=== PATIENT | male | born 1945 | race Caucasian/White ===

== ENCOUNTER → 2017-08-18 | Outpatient (CLI) | payer MEDICARE ==
[~2017-08-18] MED LIST: LISI5TAB7 PO; OMNIPAQUE 350 MG/ML, 100ML BOTTLE ONE; OXYC-302 PO; PSYL1PAC9 PO; SIMV40TA3 PO
== END | disposition home or self-care (01) ==
LOC: CFH 11:28
PROVIDERS: ATTEND Internal Medicine Hematology & Oncology
DX: C18.0 Malignant neoplasm of cecum (principal); E04.1 Nontoxic single thyroid nodule
CPT/HCPCS: 71260; 74177; Q9967

== ENCOUNTER → 2017-11-04 | Outpatient (CLI) | payer MEDICARE ==
[~2017-11-04] MED LIST changes: -OMNIPAQUE 350 MG/ML, 100ML BOTTLE ONE
== END | disposition home or self-care (01) ==
LOC: CFH 09:28
PROVIDERS: ATTEND Family Medicine
DX: R42 Dizziness and giddiness (principal)
CPT/HCPCS: 70551

== ENCOUNTER 2019-08-26 12:44 | Outpatient (CLI) | payer MEDICARE ==
[~2019-08-26 12:44] MED LIST changes: +SIMV40TA20 PO; -SIMV40TA3 PO
[2019-08-26] MEDS ORDERED: LIDOCAINE-MPF 1%, 5ML ONE (13:18)
== END 2019-08-26 23:59 | disposition home or self-care (01) ==
LOC: RAD 12:44
PROVIDERS: ATTEND Surgery
DX: E04.1 Nontoxic single thyroid nodule (principal)
CPT/HCPCS: 10005; 76536; 88172; 88173

== ENCOUNTER → 2019-10-28 | Outpatient (CLI) | payer MEDICARE | END | disposition home or self-care (01) | LOC: CFH 15:06 | PROVIDERS: ATTEND Family Medicine | DX: M25.561 Pain in right knee (principal) ==